=== PATIENT | male | born 1940 | race Caucasian/White ===

== ENCOUNTER 2022-01-20 13:07 | Emergency (ER) | payer OTHER ==
[~2022-01-20] VITALS: Ht 170.2 cm; Wt 77.1 kg
--- NOTE | 2022-01-20 13:10 | NUR ---
Patient triaged. VSS and patient appears in no acute distress at this time. Accompanied by EMT'S , awaiting available bed, and MD notified of need for MSE.
[2022-01-20 13:14] VITALS: BP_SYST 98
--- NOTE | 2022-01-20 13:21 | NUR ---
ER DR. STUBBS EXAMINING PT ON DEQUAN
[2022-01-20 13:34] LABS: BASOPHILS # (AUTO) 0.1 K/uL (0.0-0.2); BASOPHILS % (AUTO) 1.5 % (0.0-2.0); EOSINOPHILS # (AUTO) 0.1 K/uL (0.0-0.4); EOSINOPHILS % (AUTO) 1.9 % (0.0-4.0); HEMATOCRIT 39.6 % (36-54); HEMOGLOBIN 12.9 g/dL (14.0-18.0); LYMPHOCYTES # (AUTO) 1.2 K/uL (1.0-5.5); LYMPHOCYTES % (AUTO) 24.4 % (20.5-51.5); MEAN CORPUSCULAR HEMOGLOBIN 29 pg (27-31); MEAN CORPUSCULAR HGB CONC 33 % (32-36); MEAN CORPUSCULAR VOLUME 88 fL (79.0-98.0); MONOCYTES # (AUTO) 0.6 K/uL (0.0-1.0); MONOCYTES % (AUTO) 11.9 % (1.7-9.3); NEUTROPHILS # (AUTO) 3.1 K/uL (1.8-7.7); NEUTROPHILS % (AUTO) 60.3 % (40.0-70.0); PLATELET COUNT (AUTO) 185 K/uL (130-430); RED BLOOD CELL COUNT(AUTO) 4.49 MIL/uL (4.2-6.2); RED CELL DISTRIBUTION WIDTH 16.5 % (9.0-15.0); WHITE BLOOD COUNT (AUTO) 5.1 K/uL (4.8-10.8)
[2022-01-20 13:48] LABS: ANION GAP 9 (5-15); CALCIUM 9.2 mg/dL (8.4-11.0); CHLORIDE 92 mmol/L (98-107); CREATININE 1.17 mg/dL (0.55-1.30); GLUCOSE 107 mg/dL (70-99); POTASSIUM 5.3 mmol/L (3.5-5.1); SODIUM SERUM 130 mmol/L (136-145); UREA NITROGEN, BLOOD 12 mg/dL (8-21)
[2022-01-20 13:57] LABS: ALANINE AMINOTRANSFERASE 15 U/L (12-78); ALBUMIN 3.6 g/dL (3.4-4.8); ALCOHOL, BLOOD 53 mg/dL (<10); ASPARTATE AMINOTRANSFERASE 32 U/L (10-37); TOTAL BILIRUBIN 0.6 mg/dL (0.0-1.0)
--- NOTE | 2022-01-20 14:58 | NUR ---
Placed in room 2 . Placed on child monitor, blood pressure machine and pulse oximeter. To gown for exam. Side rails up. Report given to YE MARTINEZ.
--- NOTE | 2022-01-20 15:00 | NUR ---
first encounter to pt at this time. pt brody [facility]UNT from assisted living here c/o generalized weakness. pt stated he "feel confused" however, answers all questions correctly. pt is AOx4, resp even and unlabored. vss nad. pt attached to cardiac monitoring. labs drawn prior. EKG done, NSR. vss nad wctm.
[2022-01-20] MEDS ORDERED: NACL 0.9% 1,000 ML IV ONE (15:45)
[2022-01-20 17:15] LABS: BILIRUBIN,URINE NEGATIVE (NEGATIVE); BLOOD, URINE NEGATIVE (NEGATIVE); CLARITY/URINE CLEAR (CLEAR); COLOR,URINE YELLOW (YELLOW); GLUCOSE,URINE NEGATIVE (NEGATIVE); KETONES,URINE NEGATIVE (NEGATIVE); LEUKOCYTE ESTERASE ,URINE NEGATIVE (NEGATIVE); NITRITE, URINE NEGATIVE (NEGATIVE); PROTEIN URINE 2+ (NEGATIVE); UROBILINOGEN,URINE 0.2 (0.2-1.0)
[2022-01-20 17:22] LABS: BACTERIA,URINE FEW /HPF (None Seen); MUCUS,URINE None Seen /LPF (None Seen); RBC,URINE 0-3 /HPF (0-3); WBC,URINE 0-3 /HPF (0-3)
[2022-01-20 17:57] VITALS: BP_SYST 160
--- NOTE | 2022-01-20 17:57 | NUR ---
Patient daughter given written and verbal discharge instructions and verbalizes understanding. ER MD discussed with patient the results and treatment provided. Patient in stable condition. ID arm band removed. IV catheter removed intact and dressing applied, no active bleeding. Patient educated on pain management and to follow up with PMD. Pain Scale . Opportunity for questions provided and answered.
--- NOTE | 2022-02-03 20:32 | NUR ---
ADDENDUM Nacl 0.9% 1000ml start time 16:06hr end time 17:06hr
== END 2022-01-20 17:56 | disposition home or self-care (01) ==
LOC: SED 13:07
DX: R53.1 Weakness (principal); E87.1 Hypo-osmolality and hyponatremia; R41.0 Disorientation, unspecified; F10.129 Alcohol abuse with intoxication, unspecified; I10 Essential (primary) hypertension; Z88.0 Allergy status to penicillin; Z79.899 Other long term (current) drug therapy; Y90.6 Blood alcohol level of 120-199 mg/100 ml
CPT/HCPCS: 99285; 96360; 70450; 71045; 80053; 85025; 84484; 36415; 93005; 76376; 81000; G0482; J7030

== ENCOUNTER 2022-03-26 15:29 | Emergency (ER) | payer OTHER ==
[~2022-03-26] VITALS: Ht 162.6 cm; Wt 68.0 kg
[2022-03-26 15:50] VITALS: BP_SYST 143
--- NOTE | 2022-03-26 15:50 | NUR ---
Patient to ER bed 2 to gown for evaluation. Side rails up. Report given to YE SALOMON.
--- NOTE | 2022-03-26 15:54 | NUR ---
82 YEARS OLD MALE BIBA S/P FALL WITH SMALL FOREHEAD LACERATION, HEMATOMA, ALERT, ORIENTED X3 DENIES PAIN.
--- NOTE | 2022-03-26 19:04 | NUR ---
PATIENT REASSESS STABLE DENIES PAIN AWAITING FOR TRANSPORTATION FOR D/C.
--- NOTE | 2022-03-26 19:13 | NUR ---
Placed in room, report given to MONET ALL QUESTIONS ANSWERED.
[2022-03-27 04:52] VITALS: BP_SYST 136
== END 2022-03-27 02:52 | disposition home or self-care (01) ==
LOC: SED 15:29
DX: S01.81XA Laceration without foreign body of other part of head, initial encounter (principal); I10 Essential (primary) hypertension; Z88.0 Allergy status to penicillin; Z79.899 Other long term (current) drug therapy; W01.0XXA Fall on same level from slipping, tripping and stumbling without subsequent striking against object, initial encounter; Y93.89 Activity, other specified; Y92.89 Other specified places as the place of occurrence of the external cause; Y99.8 Other external cause status
CPT/HCPCS: 70450-TC; 76376; 99284

== ENCOUNTER 2022-10-14 19:13 | Emergency (ER) | payer OTHER ==
[~2022-10-14] VITALS: Ht 172.7 cm; Wt 81.6 kg
[2022-10-14 19:28] VITALS: BP_SYST 112
[2022-10-14 20:09] LABS: BASOPHILS # (AUTO) 0.1 K/uL (0.0-0.2); BASOPHILS % (AUTO) 1.3 % (0.0-2.0); EOSINOPHILS # (AUTO) 0.2 K/uL (0.0-0.4); EOSINOPHILS % (AUTO) 3.1 % (0.0-4.0); HEMOGLOBIN 12.7 g/dL (14.0-18.0); LYMPHOCYTES # (AUTO) 2.1 K/uL (1.0-5.5); LYMPHOCYTES % (AUTO) 39.9 % (20.5-51.5); MEAN CORPUSCULAR HEMOGLOBIN 33 pg (27-31); MEAN CORPUSCULAR HGB CONC 34 % (32-36); MEAN CORPUSCULAR VOLUME 98 fL (79.0-98.0); MONOCYTES # (AUTO) 0.6 K/uL (0.0-1.0); MONOCYTES % (AUTO) 10.6 % (1.7-9.3); NEUTROPHILS # (AUTO) 2.3 K/uL (1.8-7.7); NEUTROPHILS % (AUTO) 45.1 % (40.0-70.0); PLATELET COUNT (AUTO) 154 K/uL (130-430); RED BLOOD CELL COUNT(AUTO) 3.89 MIL/uL (4.2-6.2); RED CELL DISTRIBUTION WIDTH 13.6 % (9.0-15.0); WHITE BLOOD COUNT (AUTO) 5.2 K/uL (4.8-10.8)
[2022-10-14 20:13] LABS: ANION GAP 10 (5-15); CALCIUM 8.4 mg/dL (8.4-11.0); CHLORIDE 100 mmol/L (98-107); CREATININE 0.89 mg/dL (0.55-1.30); GLUCOSE 100 mg/dL (70-99); UREA NITROGEN, BLOOD 7 mg/dL (8-21)
[2022-10-14 20:23] LABS: ALANINE AMINOTRANSFERASE 18 U/L (12-78); ALBUMIN 3.5 g/dL (3.4-4.8); ALCOHOL, BLOOD 292 mg/dL (<10); ASPARTATE AMINOTRANSFERASE 29 U/L (10-37); TOTAL BILIRUBIN 0.2 mg/dL (0.0-1.0)
[2022-10-15] MEDS ORDERED: cloNIDine HCL 0.1 MG TABLET PO ONE (08:15)
[2022-10-15] MEDS ORDERED: LABETALOL HCL 20 MG/4 ML CARTRIDGE IVP ONE (09:15)
[2022-10-15] MEDS ORDERED: hydrALAZINE HCL 20 MG/ML VIAL IVP ONE (10:45)
[2022-10-15 13:30] VITALS: BP_SYST 116
== END 2022-10-15 13:48 ==
LOC: SED 19:13
DX: F10.129 Alcohol abuse with intoxication, unspecified (principal); F03.90 Unspecified dementia, unspecified severity, without behavioral disturbance, psychotic disturbance, mood disturbance, and anxiety; Z79.899 Other long term (current) drug therapy; Y90.6 Blood alcohol level of 120-199 mg/100 ml
CPT/HCPCS: 99285; 70450; 80053; 85025; 84484; 36415; 93005; 72125; 76376; 96374; 96375; G0482; J0360

== ENCOUNTER 2022-11-15 06:32 | Inpatient (IN) | payer OTHER, MEDICAID ==
[~2022-11-15] VITALS: Ht 170.2 cm; Wt 69.9 kg
[2022-11-15 06:35] VITALS: BP_SYST 113; PULSE 103; RESP 16; TEMP 98; O2SAT 97
[2022-11-15] MEDS ORDERED: ONDANSETRON HCL 4 MG/2 ML VIAL IVP ONE (06:45)
[2022-11-15] MEDS ORDERED: MORPHINE 4 MG INJ. 4 MG/ML VIAL IVP ONE (06:45)
[2022-11-15 07:11] LABS: BASOPHILS # (AUTO) 0.1 K/uL (0.0-0.2); BASOPHILS % (AUTO) 0.8 % (0.0-2.0); EOSINOPHILS % (AUTO) 0.3 % (0.0-4.0); HEMATOCRIT 35.3 % (36-54); HEMOGLOBIN 11.7 g/dL (14.0-18.0); LYMPHOCYTES # (AUTO) 1.2 K/uL (1.0-5.5); LYMPHOCYTES % (AUTO) 14.4 % (20.5-51.5); MEAN CORPUSCULAR HEMOGLOBIN 33 pg (27-31); MEAN CORPUSCULAR HGB CONC 33 % (32-36); MEAN CORPUSCULAR VOLUME 98 fL (79.0-98.0); MONOCYTES # (AUTO) 0.9 K/uL (0.0-1.0); MONOCYTES % (AUTO) 11.2 % (1.7-9.3); NEUTROPHILS # (AUTO) 6.2 K/uL (1.8-7.7); NEUTROPHILS % (AUTO) 73.3 % (40.0-70.0); PLATELET COUNT (AUTO) 230 K/uL (130-430); RED CELL DISTRIBUTION WIDTH 14.4 % (9.0-15.0); WHITE BLOOD COUNT (AUTO) 8.4 K/uL (4.8-10.8)
[2022-11-15 07:36] LABS: ANION GAP 15 (5-15); CALCIUM 9.3 mg/dL (8.4-11.0); CHLORIDE 98 mmol/L (98-107); CREATININE 1.55 mg/dL (0.55-1.30); GLUCOSE 125 mg/dL (70-99); UREA NITROGEN, BLOOD 13 mg/dL (8-21)
[2022-11-15 07:40] LABS: ALANINE AMINOTRANSFERASE 22 U/L (12-78); ALBUMIN 3.7 g/dL (3.4-4.8); ASPARTATE AMINOTRANSFERASE 25 U/L (10-37); TOTAL BILIRUBIN 0.4 mg/dL (0.0-1.0)
[2022-11-15] MEDS: D5/0.45 NS 1,000 ML IV SCH ×2 (09:45→21:03)
[2022-11-15] MEDS ORDERED: SODIUM POLYSTYRENE SULFONATE 15 GM/60 ML UDBTL PO ONE (09:45)
[2022-11-15 09:48] LABS: BILIRUBIN,URINE NEGATIVE (NEGATIVE); BLOOD, URINE NEGATIVE (NEGATIVE); COLOR,URINE YELLOW (YELLOW); GLUCOSE,URINE NEGATIVE (NEGATIVE); KETONES,URINE TRACE (NEGATIVE); LEUKOCYTE ESTERASE ,URINE NEGATIVE (NEGATIVE); NITRITE, URINE NEGATIVE (NEGATIVE); PROTEIN URINE TRACE (NEGATIVE); UROBILINOGEN,URINE 0.2 (0.2-1.0)
[2022-11-15 09:50] LABS: CLARITY/URINE SLIGHTLY HAZY (CLEAR)
[2022-11-15] MEDS ORDERED: ONDANSETRON HCL 4 MG/2 ML VIAL IVP PRN (10:00)
[2022-11-15] MEDS ORDERED: NALOXONE HCL 0.4 MG/ML AMP (NARCAN) IVP PRN (10:00)
[2022-11-15] MEDS ORDERED: MORPHINE 4 MG INJ. 4 MG/ML VIAL IVP PRN (10:00)
[2022-11-15 10:08] LABS: RBC,URINE 0-3 /HPF (0-3); WBC,URINE NONE SEEN /HPF (0-3)
[2022-11-15 10:09] LABS: BACTERIA,URINE FEW /HPF (None Seen)
[2022-11-15] MEDS: MORPHINE 2 MG/ML INJ. SYRINGE IVP PRN (10:41)
[2022-11-15 11:16] VITALS: BP_SYST 150; PULSE 119; RESP 22; TEMP 97.6
[2022-11-15] MEDS ORDERED: ACETAMINOPHEN 325 MG TABLET PO PRN (11:30)
[2022-11-15 11:38] VITALS: O2SAT 96
[2022-11-15 11:48] LABS: TOTAL IRON BIND. CAPACITY 246 ug/dL (250-450)
[2022-11-15 12:00] VITALS: BP_SYST 105; PULSE 89; RESP 19; TEMP 98; O2SAT 96
[2022-11-15] MEDS: ACETAMINOPHEN 325 MG TABLET PO PRN (12:52)
[2022-11-15 16:00] VITALS: BP_SYST 93; PULSE 120; RESP 19; TEMP 97.6; O2SAT 96
[2022-11-15 20:02] VITALS: BP_SYST 145; PULSE 107; RESP 18; TEMP 98.7; O2SAT 94
[2022-11-16 02:06] VITALS: BP_SYST 108; PULSE 100; RESP 18; TEMP 96.6; O2SAT 92
[2022-11-16 06:19] LABS: BASOPHILS % (AUTO) 0.3 % (0.0-2.0); EOSINOPHILS % (AUTO) 0.3 % (0.0-4.0); HEMOGLOBIN 8.4 g/dL (14.0-18.0); LYMPHOCYTES # (AUTO) 1.4 K/uL (1.0-5.5); LYMPHOCYTES % (AUTO) 11.8 % (20.5-51.5); MEAN CORPUSCULAR HEMOGLOBIN 33 pg (27-31); MEAN CORPUSCULAR HGB CONC 34 % (32-36); MEAN CORPUSCULAR VOLUME 97 fL (79.0-98.0); MONOCYTES # (AUTO) 0.9 K/uL (0.0-1.0); MONOCYTES % (AUTO) 7.5 % (1.7-9.3); NEUTROPHILS # (AUTO) 9.6 K/uL (1.8-7.7); NEUTROPHILS % (AUTO) 80.1 % (40.0-70.0); PLATELET COUNT (AUTO) 171 K/uL (130-430); RED BLOOD CELL COUNT(AUTO) 2.57 MIL/uL (4.2-6.2); RED CELL DISTRIBUTION WIDTH 14.5 % (9.0-15.0)
[2022-11-16 06:27] LABS: ALANINE AMINOTRANSFERASE 15 U/L (12-78); ALBUMIN 2.7 g/dL (3.4-4.8); ANION GAP 8 (5-15); ASPARTATE AMINOTRANSFERASE 29 U/L (10-37); CALCIUM 7.6 mg/dL (8.4-11.0); CHLORIDE 96 mmol/L (98-107); CREATININE 3.05 mg/dL (0.55-1.30); GLUCOSE 111 mg/dL (74-106); TOTAL BILIRUBIN 0.8 mg/dL (0.0-1.0); UREA NITROGEN, BLOOD 29 mg/dL (8-21)
[2022-11-16 08:00] VITALS: BP_SYST 93; PULSE 62; RESP 18; TEMP 98.5; O2SAT 95
[2022-11-16 08:06] LABS: FOLATE (FOLIC ACID) 6.8 ng/mL (>3.0)
[2022-11-16] MEDS: D5/0.45 NS 1,000 ML IV SCH ×3 (08:25→20:47)
[2022-11-16] MEDS ORDERED: NS 500 ML IV ONE (08:45)
[2022-11-16] MEDS ORDERED: SEVOFLURANE 15 MIN GAS INH ONE (11:18)
[2022-11-16] MEDS ORDERED: DEXAMETHASONE SOD PHOSPHATE 4 MG/ML VIAL ONE (11:18)
[2022-11-16] MEDS ORDERED: PROPOFOL 200MG/ 20ML VIAL (DIPRIVAN) IV ONE (11:18)
[2022-11-16] MEDS ORDERED: ePHEDrine sulfate 50 MG/ML VIAL ONE (11:18)
[2022-11-16] MEDS ORDERED: ONDANSETRON HCL 4 MG/2 ML VIAL ONE (11:18)
[2022-11-16] MEDS ORDERED: fentaNYL CITRATE/PF 100 MCG/2 ML AMP ONE (11:18)
[2022-11-16] MEDS ORDERED: BUPIVACAINE /PF 0.5% 30 ML VIAL ONE (11:18)
[2022-11-16] MEDS ORDERED: PHENYLEPHRINE HCL 10 MG/ML VIAL (NEOSYNEPHRINE) ONE (11:18)
[2022-11-16] MEDS ORDERED: NS IRRIG SOLN 1000 ML IR ONE (11:18)
[2022-11-16] MEDS ORDERED: METOCLOPRAMIDE HCL 10 MG/2 ML VIAL ONE (11:18)
[2022-11-16 11:24] VITALS: BP_SYST 95; PULSE 66; RESP 18; TEMP 98.4; O2SAT 96
[2022-11-16] MEDS ORDERED: MEPERIDINE HCL/PF 25 MG/ML DISP.SYRIN IVP PRN (12:30)
[2022-11-16] MEDS ORDERED: ONDANSETRON HCL 4 MG/2 ML VIAL IVP PRN (12:30)
[2022-11-16] MEDS ORDERED: NACL 0.9% 1,000 ML IV SCH (12:30)
[2022-11-16] MEDS ORDERED: HYDROmorphone 1 MG/ML INJ. CARTRIDGE IVP PRN (12:30)
[2022-11-16] MEDS ORDERED: NALOXONE HCL 0.4 MG/ML AMP (NARCAN) IVP PRN (12:30)
[2022-11-16] MEDS ORDERED: FOLIC ACID 1 MG, THIAMINE HCL 100 MG, MAGNESIUM SULFATE 1 GM, MVI 10 ML in NACL 0.9% 1,... IV SCH (13:30)
[2022-11-16] MEDS ORDERED: CYANOCOBALAMIN 1000 MCG/ML VIAL IM ONE (14:00)
[2022-11-16 14:01] LABS: CKMB RELATIVE INDEX 0.7 (0.0-2.9); CREATINE KINASE MB 2.4 ng/mL (0-3.6)
[2022-11-16] MEDS ORDERED: cloNIDine HCL 0.1 MG TABLET PO PRN (14:15)
[2022-11-16] MEDS ORDERED: LORazepam 2 MG/ML VIAL IVP PRN (14:15)
[2022-11-16] MEDS: ceFAZolin SODIUM 2 GM in D5W 100 ML IV SCH ×2 (14:33→20:47)
[2022-11-16] MEDS: THIAMINE HCL 100 MG, MAGNESIUM SULFATE 1 GM in NS 100 ML IV SCH (15:55)
[2022-11-16] MEDS: FOLIC ACID 1 MG, MVI 10 ML in NACL 0.9% 1,000 ML IV SCH (15:56)
[2022-11-16 16:00] VITALS: BP_SYST 115; PULSE 65; RESP 18; TEMP 98.1; O2SAT 96
[2022-11-16] MEDS: QUEtiapine FUMARATE 25 MG TABLET PO SCH (17:10)
[2022-11-16 19:40] VITALS: BP_SYST 110; PULSE 101; RESP 18; TEMP 98.8; O2SAT 95
[2022-11-17 02:15] VITALS: BP_SYST 141; PULSE 111; RESP 20; TEMP 98.7; O2SAT 96
[2022-11-17] MEDS: D5/0.45 NS 1,000 ML IV SCH ×3 (04:05→18:22)
[2022-11-17 05:40] LABS: BASOPHILS % (AUTO) 0.1 % (0.0-2.0); HEMOGLOBIN 7.3 g/dL (14.0-18.0); LYMPHOCYTES # (AUTO) 0.6 K/uL (1.0-5.5); LYMPHOCYTES % (AUTO) 7.2 % (20.5-51.5); MEAN CORPUSCULAR HEMOGLOBIN 33 pg (27-31); MEAN CORPUSCULAR HGB CONC 35 % (32-36); MEAN CORPUSCULAR VOLUME 96 fL (79.0-98.0); MONOCYTES # (AUTO) 0.5 K/uL (0.0-1.0); MONOCYTES % (AUTO) 5.9 % (1.7-9.3); NEUTROPHILS # (AUTO) 7.7 K/uL (1.8-7.7); NEUTROPHILS % (AUTO) 86.8 % (40.0-70.0); PLATELET COUNT (AUTO) 162 K/uL (130-430); RED BLOOD CELL COUNT(AUTO) 2.19 MIL/uL (4.2-6.2); RED CELL DISTRIBUTION WIDTH 14.2 % (9.0-15.0); WHITE BLOOD COUNT (AUTO) 8.9 K/uL (4.8-10.8)
[2022-11-17 06:03] LABS: HEMATOCRIT 21.1 % (36-54)
[2022-11-17] MEDS: ceFAZolin SODIUM 2 GM in D5W 100 ML IV SCH (06:24)
[2022-11-17 06:32] LABS: ALANINE AMINOTRANSFERASE 16 U/L (12-78); ALBUMIN 2.4 g/dL (3.4-4.8); ANION GAP 7 (5-15); ASPARTATE AMINOTRANSFERASE 35 U/L (10-37); CALCIUM 7.8 mg/dL (8.4-11.0); CHLORIDE 100 mmol/L (98-107); CHOLESTEROL 98 mg/dL (<200); CREATININE 1.13 mg/dL (0.55-1.30); GLUCOSE 178 mg/dL (74-106); HDL CHOLESTEROL 52 mg/dL (>45); THYROID STIMULATING HORMONE 0.54 uIu/mL (0.34-4.82); TOTAL BILIRUBIN 0.3 mg/dL (0.0-1.0); TRIGLYCERIDES 56 mg/dL (30-150); UREA NITROGEN, BLOOD 20 mg/dL (8-21)
[2022-11-17 07:55] VITALS: BP_SYST 119; PULSE 93; RESP 20; TEMP 97.4; O2SAT 98
[2022-11-17 08:00] VITALS: O2SAT 98
[2022-11-17] MEDS: CYANOCOBALAMIN (VITAMIN B-12) 1,000 MCG TABLET PO SCH (09:29)
[2022-11-17 11:34] VITALS: BP_SYST 113; PULSE 94; RESP 17; TEMP 98.1; O2SAT 100
[2022-11-17] MEDS ORDERED: MULTIVITS,CA,MINERALS/IRON/FA 1 TABLET PO ONE (15:30)
[2022-11-17] MEDS ORDERED: CYANOCOBALAMIN 1000 MCG/ML VIAL IM ONE (16:00)
[2022-11-17] MEDS: THIAMINE HCL 100 MG, MAGNESIUM SULFATE 1 GM in NS 100 ML IV SCH (16:04)
[2022-11-17] MEDS: FOLIC ACID 1 MG, MVI 10 ML in NACL 0.9% 1,000 ML IV SCH (16:05)
[2022-11-17] MEDS: SOD FERRIC GLUC COMPLEX/SUC 125 MG in NS 100 ML IV SCH (16:09)
[2022-11-17] MEDS: EPOETIN ALFA-EPBX 4,000 UNITS/ML VIAL SUBCUT SCH (16:15)
[2022-11-17 17:08] VITALS: BP_SYST 150; PULSE 104; RESP 18; TEMP 97.8; O2SAT 99
[2022-11-17] MEDS: QUEtiapine FUMARATE 25 MG TABLET PO SCH (17:35)
[2022-11-17 20:00] VITALS: BP_SYST 143; PULSE 98; RESP 18; TEMP 97.1; O2SAT 99
[2022-11-17] MEDS: ACETAMINOPHEN 325 MG TABLET PO PRN (20:35)
[2022-11-18] VITALS (7 sets, daily range): BP systolic 128–139; PULSE 71–97; RESP 17–18; TEMP 97.5–98.3; O2SAT 95–100
[2022-11-18 07:56] LABS: BASOPHILS % (AUTO) 0.3 % (0.0-2.0); EOSINOPHILS # (AUTO) 0.1 K/uL (0.0-0.4); EOSINOPHILS % (AUTO) 1.1 % (0.0-4.0); HEMATOCRIT 22.1 % (36-54); HEMOGLOBIN 7.4 g/dL (14.0-18.0); LYMPHOCYTES # (AUTO) 1.4 K/uL (1.0-5.5); LYMPHOCYTES % (AUTO) 15.1 % (20.5-51.5); MEAN CORPUSCULAR HEMOGLOBIN 33 pg (27-31); MEAN CORPUSCULAR HGB CONC 33 % (32-36); MEAN CORPUSCULAR VOLUME 98 fL (79.0-98.0); MONOCYTES # (AUTO) 0.5 K/uL (0.0-1.0); MONOCYTES % (AUTO) 5.5 % (1.7-9.3); NEUTROPHILS # (AUTO) 7.4 K/uL (1.8-7.7); PLATELET COUNT (AUTO) 221 K/uL (130-430); RED BLOOD CELL COUNT(AUTO) 2.26 MIL/uL (4.2-6.2); RED CELL DISTRIBUTION WIDTH 14.6 % (9.0-15.0); WHITE BLOOD COUNT (AUTO) 9.5 K/uL (4.8-10.8)
[2022-11-18 07:57] LABS: ANION GAP 6 (5-15); CHLORIDE 102 mmol/L (98-107); CREATININE 0.76 mg/dL (0.55-1.30); GLUCOSE 124 mg/dL (74-106); UREA NITROGEN, BLOOD 10 mg/dL (8-21)
[2022-11-18 08:09] LABS: ALANINE AMINOTRANSFERASE 19 U/L (12-78); ALBUMIN 2.6 g/dL (3.4-4.8); ASPARTATE AMINOTRANSFERASE 36 U/L (10-37); TOTAL BILIRUBIN 0.5 mg/dL (0.0-1.0)
[2022-11-18] MEDS: CYANOCOBALAMIN (VITAMIN B-12) 1,000 MCG TABLET PO SCH (08:22)
[2022-11-18] MEDS: MULTIVITS,CA,MINERALS/IRON/FA 1 TABLET PO SCH (08:22)
[2022-11-18] MEDS: ACETAMINOPHEN 325 MG TABLET PO PRN ×3 (08:26→23:13)
[2022-11-18] MEDS ORDERED: CYANOCOBALAMIN (VITAMIN B-12) 1,000 MCG TABLET PO SCH (09:00)
[2022-11-18] MEDS ORDERED: TAMSULOSIN HCL 0.4 MG CAP PO ONE (12:30)
[2022-11-18] MEDS ORDERED: CHOLECALCIFEROL (VITAMIN D3) 2,000 UNIT TABLET PO ONE (12:45)
[2022-11-18] MEDS: D5/0.45 NS 1,000 ML IV SCH (14:09)
[2022-11-18] MEDS: SOD FERRIC GLUC COMPLEX/SUC 125 MG in NS 100 ML IV SCH (16:48)
[2022-11-18] MEDS: QUEtiapine FUMARATE 25 MG TABLET PO SCH (18:16)
[2022-11-18] MEDS: TAMSULOSIN HCL 0.4 MG CAP PO SCH (20:54)
[2022-11-18] MEDS: MULTIVITAMINS TAB 1 TABLET PO SCH (20:54)
[2022-11-19 00:22] VITALS: BP_SYST 155; PULSE 101; RESP 18; TEMP 97.5; O2SAT 96
[2022-11-19 07:03] LABS: ANION GAP 4 (5-15); CALCIUM 8.4 mg/dL (8.4-11.0); CHLORIDE 102 mmol/L (98-107); CREATININE 0.84 mg/dL (0.55-1.30); GLUCOSE 108 mg/dL (74-106); UREA NITROGEN, BLOOD 7 mg/dL (8-21)
[2022-11-19 07:29] LABS: BASOPHILS # (AUTO) 0.1 K/uL (0.0-0.2); BASOPHILS % (AUTO) 0.9 % (0.0-2.0); EOSINOPHILS # (AUTO) 0.3 K/uL (0.0-0.4); EOSINOPHILS % (AUTO) 3.9 % (0.0-4.0); HEMATOCRIT 22.1 % (36-54); HEMOGLOBIN 7.4 g/dL (14.0-18.0); LYMPHOCYTES # (AUTO) 1.4 K/uL (1.0-5.5); LYMPHOCYTES % (AUTO) 19.9 % (20.5-51.5); MEAN CORPUSCULAR HEMOGLOBIN 33 pg (27-31); MEAN CORPUSCULAR HGB CONC 34 % (32-36); MEAN CORPUSCULAR VOLUME 97 fL (79.0-98.0); MONOCYTES # (AUTO) 0.6 K/uL (0.0-1.0); MONOCYTES % (AUTO) 8.2 % (1.7-9.3); NEUTROPHILS # (AUTO) 4.8 K/uL (1.8-7.7); NEUTROPHILS % (AUTO) 67.1 % (40.0-70.0); PLATELET COUNT (AUTO) 244 K/uL (130-430); RED BLOOD CELL COUNT(AUTO) 2.27 MIL/uL (4.2-6.2); RED CELL DISTRIBUTION WIDTH 14.6 % (9.0-15.0); WHITE BLOOD COUNT (AUTO) 7.1 K/uL (4.8-10.8)
[2022-11-19 08:00] VITALS: BP_SYST 161; PULSE 104; RESP 18; TEMP 99; O2SAT 95; O2SAT 98
[2022-11-19] MEDS: ACETAMINOPHEN 325 MG TABLET PO PRN ×2 (08:19→17:47)
[2022-11-19] MEDS: TAMSULOSIN HCL 0.4 MG CAP PO SCH ×2 (08:21→21:13)
[2022-11-19] MEDS: MULTIVITS,CA,MINERALS/IRON/FA 1 TABLET PO SCH (08:22)
[2022-11-19] MEDS: MULTIVITAMINS TAB 1 TABLET PO SCH ×2 (08:22→21:13)
[2022-11-19] MEDS: CYANOCOBALAMIN (VITAMIN B-12) 1,000 MCG TABLET PO SCH (08:22)
[2022-11-19] MEDS: CHOLECALCIFEROL (VITAMIN D3) 2,000 UNIT TABLET PO SCH (08:22)
[2022-11-19] MEDS: FOLIC ACID 1 MG TABLET PO SCH ×2 (08:23→08:40)
[2022-11-19] MEDS: THIAMINE HCL 100 MG TABLET PO SCH (08:41)
[2022-11-19] MEDS ORDERED: LOSARTAN POTASSIUM 50 MG TABLET (COZAAR) PO ONE (10:15)
[2022-11-19 12:00] VITALS: BP_SYST 140; PULSE 93; RESP 18; TEMP 98.2; O2SAT 99
[2022-11-19 16:00] VITALS: BP_SYST 150; PULSE 102; RESP 17; TEMP 98.2; O2SAT 98
[2022-11-19] MEDS: SOD FERRIC GLUC COMPLEX/SUC 125 MG in NS 100 ML IV SCH (17:23)
[2022-11-19] MEDS: QUEtiapine FUMARATE 25 MG TABLET PO SCH (17:36)
[2022-11-19] MEDS: EPOETIN ALFA-EPBX 4,000 UNITS/ML VIAL SUBCUT SCH (17:37)
[2022-11-19 20:00] VITALS: BP_SYST 152; PULSE 99; RESP 18; TEMP 97.4; O2SAT 98
[2022-11-20] VITALS: BP_SYST 149; PULSE 98; RESP 18; TEMP 97.5; O2SAT 98
[2022-11-20 00:15] VITALS: BP_SYST 110; PULSE 93; RESP 16; TEMP 97.8; O2SAT 96
[2022-11-20 08:00] VITALS: O2SAT 94
[2022-11-20] MEDS: LOSARTAN POTASSIUM 50 MG TABLET (COZAAR) PO SCH (08:45)
[2022-11-20] MEDS: FOLIC ACID 1 MG TABLET PO SCH (08:46)
[2022-11-20] MEDS: MULTIVITAMINS TAB 1 TABLET PO SCH ×2 (08:46→21:57)
[2022-11-20] MEDS: MULTIVITS,CA,MINERALS/IRON/FA 1 TABLET PO SCH (08:46)
[2022-11-20] MEDS: CYANOCOBALAMIN (VITAMIN B-12) 1,000 MCG TABLET PO SCH (08:46)
[2022-11-20] MEDS: CHOLECALCIFEROL (VITAMIN D3) 2,000 UNIT TABLET PO SCH (08:46)
[2022-11-20] MEDS: THIAMINE HCL 100 MG TABLET PO SCH (08:46)
[2022-11-20] MEDS: TAMSULOSIN HCL 0.4 MG CAP PO SCH ×2 (08:46→21:57)
[2022-11-20] MEDS: MORPHINE 2 MG/ML INJ. SYRINGE IVP PRN ×2 (08:49→17:46)
[2022-11-20] MEDS: ENOXAPARIN SODIUM 40 MG/0.4 ML SYRINGE SUBCUT SCH (11:33)
[2022-11-20 11:37] VITALS: BP_SYST 120; PULSE 102; RESP 17; TEMP 99.1; O2SAT 96
[2022-11-20 17:34] VITALS: BP_SYST 154; PULSE 108; RESP 17; TEMP 99.4; O2SAT 95
[2022-11-20] MEDS: QUEtiapine FUMARATE 25 MG TABLET PO SCH (17:46)
[2022-11-20 20:00] VITALS: BP_SYST 105; PULSE 95; RESP 18; TEMP 98.6; O2SAT 95
[2022-11-21 00:31] VITALS: BP_SYST 120; PULSE 98; RESP 20; TEMP 99.2; O2SAT 98
[2022-11-21] MEDS: MORPHINE 2 MG/ML INJ. SYRINGE IVP PRN ×3 (00:48→22:17)
[2022-11-21 05:51] LABS: BASOPHILS # (AUTO) 0.1 K/uL (0.0-0.2); BASOPHILS % (AUTO) 1.7 % (0.0-2.0); EOSINOPHILS # (AUTO) 0.3 K/uL (0.0-0.4); EOSINOPHILS % (AUTO) 3.9 % (0.0-4.0); HEMATOCRIT 23.3 % (36-54); HEMOGLOBIN 7.7 g/dL (14.0-18.0); LYMPHOCYTES # (AUTO) 1.6 K/uL (1.0-5.5); LYMPHOCYTES % (AUTO) 24.5 % (20.5-51.5); MEAN CORPUSCULAR HEMOGLOBIN 33 pg (27-31); MEAN CORPUSCULAR HGB CONC 33 % (32-36); MEAN CORPUSCULAR VOLUME 98 fL (79.0-98.0); MONOCYTES # (AUTO) 0.8 K/uL (0.0-1.0); MONOCYTES % (AUTO) 11.5 % (1.7-9.3); NEUTROPHILS # (AUTO) 3.8 K/uL (1.8-7.7); NEUTROPHILS % (AUTO) 58.4 % (40.0-70.0); PLATELET COUNT (AUTO) 282 K/uL (130-430); RED BLOOD CELL COUNT(AUTO) 2.37 MIL/uL (4.2-6.2); RED CELL DISTRIBUTION WIDTH 14.8 % (9.0-15.0); WHITE BLOOD COUNT (AUTO) 6.5 K/uL (4.8-10.8)
[2022-11-21 06:08] LABS: ANION GAP 7 (5-15); CALCIUM 8.9 mg/dL (8.4-11.0); CHLORIDE 101 mmol/L (98-107); CREATININE 0.74 mg/dL (0.55-1.30); GLUCOSE 113 mg/dL (74-106); UREA NITROGEN, BLOOD 14 mg/dL (8-21)
[2022-11-21 07:00] VITALS: O2SAT 96
[2022-11-21 08:00] VITALS: BP_SYST 103; BP_SYST 97; PULSE 92; RESP 20; TEMP 97.9; O2SAT 96
[2022-11-21] MEDS: LOSARTAN POTASSIUM 50 MG TABLET (COZAAR) PO SCH (09:00)
[2022-11-21] MEDS: MULTIVITS,CA,MINERALS/IRON/FA 1 TABLET PO SCH (09:07)
[2022-11-21] MEDS: CHOLECALCIFEROL (VITAMIN D3) 2,000 UNIT TABLET PO SCH (09:08)
[2022-11-21] MEDS: MULTIVITAMINS TAB 1 TABLET PO SCH ×2 (09:08→22:17)
[2022-11-21] MEDS: THIAMINE HCL 100 MG TABLET PO SCH (09:08)
[2022-11-21] MEDS: TAMSULOSIN HCL 0.4 MG CAP PO SCH ×2 (09:08→22:17)
[2022-11-21] MEDS: FOLIC ACID 1 MG TABLET PO SCH (09:08)
[2022-11-21] MEDS: ACETAMINOPHEN 325 MG TABLET PO PRN (09:08)
[2022-11-21] MEDS: CYANOCOBALAMIN (VITAMIN B-12) 1,000 MCG TABLET PO SCH (09:08)
[2022-11-21 12:00] VITALS: BP_SYST 105; PULSE 93; RESP 16; TEMP 98; O2SAT 97
[2022-11-21] MEDS: ENOXAPARIN SODIUM 40 MG/0.4 ML SYRINGE SUBCUT SCH ×2 (14:05→14:21)
[2022-11-21 16:00] VITALS: BP_SYST 127; PULSE 96; RESP 16; TEMP 98; O2SAT 95
[2022-11-21] MEDS: QUEtiapine FUMARATE 25 MG TABLET PO SCH (18:00)
[2022-11-21] MEDS: EPOETIN ALFA-EPBX 4,000 UNITS/ML VIAL SUBCUT SCH (18:00)
[2022-11-21 20:00] VITALS: BP_SYST 123; PULSE 95; RESP 17; TEMP 97; O2SAT 97
[2022-11-22 01:20] VITALS: BP_SYST 133; PULSE 86; RESP 17; TEMP 97.7; O2SAT 99
[2022-11-22 08:00] VITALS: BP_SYST 96; PULSE 90; RESP 17; TEMP 97.7; O2SAT 98
[2022-11-22] MEDS: MULTIVITS,CA,MINERALS/IRON/FA 1 TABLET PO SCH (08:59)
[2022-11-22] MEDS: LOSARTAN POTASSIUM 50 MG TABLET (COZAAR) PO SCH (08:59)
[2022-11-22] MEDS: TAMSULOSIN HCL 0.4 MG CAP PO SCH ×2 (08:59→20:51)
[2022-11-22] MEDS: CHOLECALCIFEROL (VITAMIN D3) 2,000 UNIT TABLET PO SCH (08:59)
[2022-11-22] MEDS: MULTIVITAMINS TAB 1 TABLET PO SCH ×2 (08:59→20:52)
[2022-11-22] MEDS: THIAMINE HCL 100 MG TABLET PO SCH (08:59)
[2022-11-22] MEDS: FOLIC ACID 1 MG TABLET PO SCH (08:59)
[2022-11-22] MEDS: CYANOCOBALAMIN (VITAMIN B-12) 1,000 MCG TABLET PO SCH (08:59)
[2022-11-22 10:32] VITALS: O2SAT 97
[2022-11-22 13:59] VITALS: BP_SYST 130; PULSE 98; RESP 20; TEMP 98.3; O2SAT 98
[2022-11-22] MEDS: QUEtiapine FUMARATE 25 MG TABLET PO SCH (18:26)
[2022-11-22 18:31] VITALS: BP_SYST 131; PULSE 98; RESP 18; TEMP 97.4; O2SAT 97
[2022-11-22 20:00] VITALS: BP_SYST 139; PULSE 97; RESP 18; TEMP 98; O2SAT 95
[2022-11-23 01:24] VITALS: BP_SYST 140; PULSE 84; RESP 17; TEMP 98; O2SAT 99
[2022-11-23] MEDS: TAMSULOSIN HCL 0.4 MG CAP PO SCH ×2 (08:53→23:14)
[2022-11-23] MEDS: MULTIVITS,CA,MINERALS/IRON/FA 1 TABLET PO SCH (08:53)
[2022-11-23] MEDS: MULTIVITAMINS TAB 1 TABLET PO SCH ×2 (08:53→23:14)
[2022-11-23] MEDS: FOLIC ACID 1 MG TABLET PO SCH (08:53)
[2022-11-23] MEDS: LOSARTAN POTASSIUM 50 MG TABLET (COZAAR) PO SCH (08:53)
[2022-11-23] MEDS: CHOLECALCIFEROL (VITAMIN D3) 2,000 UNIT TABLET PO SCH (08:53)
[2022-11-23] MEDS: THIAMINE HCL 100 MG TABLET PO SCH (08:53)
[2022-11-23] MEDS: CYANOCOBALAMIN (VITAMIN B-12) 1,000 MCG TABLET PO SCH (08:53)
[2022-11-23 11:59] VITALS: O2SAT 97
[2022-11-23 12:07] VITALS: BP_SYST 122; PULSE 90; RESP 17; TEMP 97.8; O2SAT 97
[2022-11-23] MEDS ORDERED: ACET325T PO (12:13)
[2022-11-23] MEDS ORDERED: LOVI40 SUBCUT (12:13)
[2022-11-23] MEDS: ENOXAPARIN SODIUM 40 MG/0.4 ML SYRINGE SUBCUT SCH (12:47)
[2022-11-23] MEDS: MORPHINE 2 MG/ML INJ. SYRINGE IVP PRN (14:05)
[2022-11-23 16:14] VITALS: BP_SYST 114; PULSE 92; RESP 17; TEMP 97.3; O2SAT 97
[2022-11-23] MEDS: EPOETIN ALFA-EPBX 4,000 UNITS/ML VIAL SUBCUT SCH (17:47)
[2022-11-23] MEDS: QUEtiapine FUMARATE 25 MG TABLET PO SCH (17:47)
[2022-11-23 19:00] VITALS: BP_SYST 113; PULSE 95; RESP 18; TEMP 98.9; O2SAT 97
[2022-11-24] VITALS (8 sets, daily range): BP systolic 103–146; PULSE 68–94; RESP 16–18; TEMP 97.2–98; O2SAT 95–98
[2022-11-24 06:52] LABS: BASOPHILS # (AUTO) 0.1 K/uL (0.0-0.2); BASOPHILS % (AUTO) 0.8 % (0.0-2.0); EOSINOPHILS # (AUTO) 0.2 K/uL (0.0-0.4); EOSINOPHILS % (AUTO) 2.9 % (0.0-4.0); HEMATOCRIT 26.5 % (36-54); HEMOGLOBIN 8.7 g/dL (14.0-18.0); LYMPHOCYTES # (AUTO) 1.2 K/uL (1.0-5.5); LYMPHOCYTES % (AUTO) 16.7 % (20.5-51.5); MEAN CORPUSCULAR HEMOGLOBIN 32 pg (27-31); MEAN CORPUSCULAR HGB CONC 33 % (32-36); MEAN CORPUSCULAR VOLUME 98 fL (79.0-98.0); MONOCYTES # (AUTO) 0.7 K/uL (0.0-1.0); MONOCYTES % (AUTO) 10.1 % (1.7-9.3); NEUTROPHILS % (AUTO) 69.5 % (40.0-70.0); PLATELET COUNT (AUTO) 349 K/uL (130-430); RED CELL DISTRIBUTION WIDTH 15.9 % (9.0-15.0); WHITE BLOOD COUNT (AUTO) 7.3 K/uL (4.8-10.8)
[2022-11-24] MEDS: THIAMINE HCL 100 MG TABLET PO SCH (08:47)
[2022-11-24] MEDS: CYANOCOBALAMIN (VITAMIN B-12) 1,000 MCG TABLET PO SCH (08:47)
[2022-11-24] MEDS: CHOLECALCIFEROL (VITAMIN D3) 2,000 UNIT TABLET PO SCH (08:48)
[2022-11-24] MEDS: MULTIVITAMINS TAB 1 TABLET PO SCH ×2 (08:48→20:13)
[2022-11-24] MEDS: FOLIC ACID 1 MG TABLET PO SCH (08:48)
[2022-11-24] MEDS: MULTIVITS,CA,MINERALS/IRON/FA 1 TABLET PO SCH (08:49)
[2022-11-24] MEDS: LOSARTAN POTASSIUM 50 MG TABLET (COZAAR) PO SCH (08:49)
[2022-11-24] MEDS: TAMSULOSIN HCL 0.4 MG CAP PO SCH ×2 (08:50→20:13)
[2022-11-24] MEDS: ENOXAPARIN SODIUM 40 MG/0.4 ML SYRINGE SUBCUT SCH (12:27)
[2022-11-24] MEDS: QUEtiapine FUMARATE 25 MG TABLET PO SCH (17:52)
[2022-11-24] MEDS ORDERED: MULT-1094 PO (21:28)
== END 2022-11-24 21:00 | DRG 480 ==
LOC: SED 06:32 → STU 08:30 → SMU 11-18 14:03
PROVIDERS: ADMIT Internal Medicine; ATTEND Internal Medicine
PROC: 0QS606Z Reposition Right Upper Femur with Intramedullary Internal Fixation Device, Open Approach (ICD-10-PCS; principal; 2022-11-16 11:18)
DX: S72.141A Displaced intertrochanteric fracture of right femur, initial encounter for closed fracture (principal); E43 Unspecified severe protein-calorie malnutrition; N17.0 Acute kidney failure with tubular necrosis; D62 Acute posthemorrhagic anemia; E87.5 Hyperkalemia; G30.9 Alzheimer's disease, unspecified; F02.B0 Dementia in other diseases classified elsewhere, moderate, without behavioral disturbance, psychotic disturbance, mood disturbance, and anxiety; E86.0 Dehydration; E78.5 Hyperlipidemia, unspecified; W18.39XA Other fall on same level, initial encounter; E86.1 Hypovolemia; F10.10 Alcohol abuse, uncomplicated; Y90.9 Presence of alcohol in blood, level not specified; I10 Essential (primary) hypertension; Z88.6 Allergy status to analgesic agent; Z88.0 Allergy status to penicillin; Z88.8 Allergy status to other drugs, medicaments and biological substances; Z79.899 Other long term (current) drug therapy; Z86.73 Personal history of transient ischemic attack (TIA), and cerebral infarction without residual deficits; Y93.89 Activity, other specified; Y92.89 Other specified places as the place of occurrence of the external cause; Y99.8 Other external cause status; Z68.24 Body mass index [BMI] 24.0-24.9, adult
CPT/HCPCS: 36415; 70450-TC; 71045; 73502; 73552; 76001; 76376; 80048; 80053; 80061; 81000; 82550; 82553; 82607; 82746; 83540; 83550; 83735; 83880; 84443; 85025; 86886; 86900; 86901; 86920; 87081; 87086; 92610-GN; 93005; 93306; 96374; 96375; 96376; 97110-GP; 97116-GP; 97163-GP; 97530-GP; 99291; 99292; C1713; C1769; G0378; J1100; J1650; J2060; J2270; J2370; J2405; J2704; J2765; J2916; J3010; J3411; J3420; J3475; J3490; J7030; J7040; J7060; Q5106

== ENCOUNTER 2023-03-26 11:11 | Emergency (ER) | payer OTHER, MEDICAID ==
[~2023-03-26] VITALS: Ht 170.2 cm; Wt 70.3 kg
[~2023-03-26 11:11] MED LIST: ACET325T PO; LOVI40 SUBCUT; MULT-1094 PO
[2023-03-26] MEDS ORDERED: NACL 0.9% 1,000 ML IV ONE (11:15)
[2023-03-26 11:25] VITALS: BP_SYST 125; PULSE 84; RESP 18; TEMP 97.8; O2SAT 98
[2023-03-26 11:38] LABS: BASOPHILS # (AUTO) 0.1 K/uL (0.0-0.2); BASOPHILS % (AUTO) 0.9 % (0.0-2.0); EOSINOPHILS # (AUTO) 0.1 K/uL (0.0-0.4); EOSINOPHILS % (AUTO) 1.3 % (0.0-4.0); HEMATOCRIT 39.4 % (36-54); HEMOGLOBIN 12.9 g/dL (14.0-18.0); LYMPHOCYTES % (AUTO) 29.3 % (20.5-51.5); MEAN CORPUSCULAR HEMOGLOBIN 31 pg (27-31); MEAN CORPUSCULAR HGB CONC 33 % (32-36); MEAN CORPUSCULAR VOLUME 94 fL (79.0-98.0); MONOCYTES # (AUTO) 0.6 K/uL (0.0-1.0); MONOCYTES % (AUTO) 8.4 % (1.7-9.3); NEUTROPHILS % (AUTO) 60.1 % (40.0-70.0); PLATELET COUNT (AUTO) 207 K/uL (130-430); RED BLOOD CELL COUNT(AUTO) 4.18 MIL/uL (4.2-6.2); RED CELL DISTRIBUTION WIDTH 15.6 % (9.0-15.0); WHITE BLOOD COUNT (AUTO) 6.7 K/uL (4.8-10.8)
[2023-03-26 11:47] LABS: ANION GAP 10 (5-15); CALCIUM 9.3 mg/dL (8.4-11.0); CARBON DIOXIDE 28 mmol/L (23-29); CHLORIDE 95 mmol/L (98-107); CREATININE 1.08 mg/dL (0.55-1.30); GLUCOSE 105 mg/dL (74-106); POTASSIUM 4.5 mmol/L (3.5-5.1); SODIUM SERUM 133 mmol/L (136-145); UREA NITROGEN, BLOOD 10 mg/dL (8-21)
[2023-03-26 11:54] LABS: ALANINE AMINOTRANSFERASE 11 U/L (12-78); ALBUMIN 3.7 g/dL (3.4-4.8); ALCOHOL, BLOOD 90 mg/dL (<10); ASPARTATE AMINOTRANSFERASE 15 U/L (10-37); LIPASE 35 U/L (16-77); TOTAL BILIRUBIN 0.7 mg/dL (0.0-1.0); TOTAL PROTEIN, SERUM 7.6 g/dL (6.4-8.3)
[2023-03-26 14:03] VITALS: BP_SYST 125; PULSE 84; RESP 18; TEMP 97.8; O2SAT 98
== END 2023-03-26 14:02 | disposition home or self-care (01) ==
LOC: SED 11:11
DX: F10.10 Alcohol abuse, uncomplicated (principal); I95.9 Hypotension, unspecified; I10 Essential (primary) hypertension; Z88.0 Allergy status to penicillin; Z88.6 Allergy status to analgesic agent; Z79.899 Other long term (current) drug therapy; Y90.6 Blood alcohol level of 120-199 mg/100 ml
CPT/HCPCS: 99284; 96360; 80053; 82140; 83690; 85025; 84484; 36415; 93005; G0482; J7030

== ENCOUNTER 2023-12-17 10:55 | Inpatient (IN) | payer MEDICAID, OTHER ==
[~2023-12-17] VITALS: Ht 170.2 cm; Wt 70.3 kg
[~2023-12-17 10:55] MED LIST changes: -MULT-1094 PO; +THERA PO; +[UNRECOGNIZED DRUG - OTHER] PO
[2023-12-17 11:04] VITALS: BP_SYST 156; PULSE 90; RESP 17; TEMP 97.2; O2SAT 97
[2023-12-17 11:52] LABS: ERYTHROCYTE SEDIMENTATION RATE 8 MM/HR (0-15)
[2023-12-17 11:55] LABS: BASOPHILS # (AUTO) 0.1 K/uL (0.0-0.2); BASOPHILS % (AUTO) 1.5 % (0.0-2.0); EOSINOPHILS # (AUTO) 0.1 K/uL (0.0-0.4); EOSINOPHILS % (AUTO) 3.5 % (0.0-4.0); HEMATOCRIT 40.9 % (36-54); HEMOGLOBIN 13.3 g/dL (14.0-18.0); LYMPHOCYTES # (AUTO) 1.8 K/uL (1.0-5.5); LYMPHOCYTES % (AUTO) 43.1 % (20.5-51.5); MEAN CORPUSCULAR HEMOGLOBIN 32 pg (27-31); MEAN CORPUSCULAR HGB CONC 33 % (32-36); MEAN CORPUSCULAR VOLUME 98 fL (79.0-98.0); MONOCYTES # (AUTO) 0.3 K/uL (0.0-1.0); MONOCYTES % (AUTO) 7.9 % (1.7-9.3); NEUTROPHILS # (AUTO) 1.8 K/uL (1.8-7.7); PLATELET COUNT (AUTO) 264 K/uL (130-430); RED CELL DISTRIBUTION WIDTH 14.8 % (9.0-15.0); WHITE BLOOD COUNT (AUTO) 4.2 K/uL (4.8-10.8)
[2023-12-17 12:20] LABS: PROTHROMBIN TIME 10.4 SECS (9.5-12.5)
[2023-12-17 12:32] LABS: ALANINE AMINOTRANSFERASE 19 U/L (12-78); ALBUMIN 3.7 g/dL (3.4-4.8); ANION GAP 6 (5-15); ASPARTATE AMINOTRANSFERASE 21 U/L (10-37); BILIRUBIN,DIRECT 0.1 mg/dL (0.0-0.3); CALCIUM 8.8 mg/dL (8.4-11.0); CARBON DIOXIDE 28 mmol/L (23-29); CHLORIDE 98 mmol/L (98-107); CREATININE 0.91 mg/dL (0.55-1.30); GLUCOSE 89 mg/dL (74-106); POTASSIUM 4.8 mmol/L (3.5-5.1); SODIUM SERUM 132 mmol/L (136-145); TOTAL BILIRUBIN 0.3 mg/dL (0.0-1.0); TOTAL PROTEIN, SERUM 7.8 g/dL (6.4-8.3); UREA NITROGEN, BLOOD 10 mg/dL (8-21); URIC ACID 8.4 mg/dL (2.4-7.0)
[2023-12-17] MEDS ORDERED: IBUP-1969 PO (13:18)
[2023-12-17] MEDS ORDERED: HYDR-3917 PO (13:18)
[2023-12-17] MEDS: MORPHINE 2 MG/ML INJ. SYRINGE IM ONE (14:19)
[2023-12-17] MEDS ORDERED: HYDROcodone/ACETAMIN 5-325 MG TAB (NORCO/ VICODIN) PO PRN (15:00)
[2023-12-17] MEDS ORDERED: MORPHINE 2 MG/ML INJ. SYRINGE IVP PRN (15:00)
[2023-12-17] MEDS ORDERED: ACETAMINOPHEN 325 MG TABLET PO PRN (15:00)
[2023-12-17] MEDS: NACL 0.9% 1,000 ML IV SCH (16:41)
[2023-12-17] MEDS: LORazepam 2 MG/ML VIAL IVP ONE (16:41)
[2023-12-17] MEDS ORDERED: AMLO5TAB4 PO (17:05)
[2023-12-17] MEDS ORDERED: LISI40TA20 PO (17:05)
[2023-12-17] MEDS ORDERED: MEMA10TA PO (17:05)
[2023-12-17] MEDS ORDERED: SIMV-341 PO (17:05)
[2023-12-17] MEDS: ENALAPRILAT DIHYDRATE 1.25 MG/ML VIAL IVP ONE (20:33)
[2023-12-17 21:29] VITALS: BP_SYST 146; PULSE 119; RESP 20; TEMP 98.9
[2023-12-17 21:30] VITALS: BP_SYST 146; PULSE 107
[2023-12-17 22:18] VITALS: O2SAT 98
[2023-12-17 22:30] VITALS: BP_SYST 201; PULSE 112; RESP 20; TEMP 98.9; O2SAT 97
[2023-12-17] MEDS: hydrALAZINE HCL 20 MG/ML VIAL IVP PRN (23:06)
[2023-12-18 00:10] VITALS: BP_SYST 181; PULSE 107; RESP 20; TEMP 98.8; O2SAT 97
[2023-12-18 04:51] LABS: BASOPHILS # (AUTO) 0.1 K/uL (0.0-0.2); BASOPHILS % (AUTO) 1.1 % (0.0-2.0); EOSINOPHILS % (AUTO) 0.5 % (0.0-4.0); HEMATOCRIT 39.5 % (36-54); HEMOGLOBIN 13.1 g/dL (14.0-18.0); LYMPHOCYTES # (AUTO) 0.8 K/uL (1.0-5.5); LYMPHOCYTES % (AUTO) 12.6 % (20.5-51.5); MEAN CORPUSCULAR HEMOGLOBIN 32 pg (27-31); MEAN CORPUSCULAR HGB CONC 33 % (32-36); MEAN CORPUSCULAR VOLUME 96 fL (79.0-98.0); MONOCYTES # (AUTO) 0.5 K/uL (0.0-1.0); MONOCYTES % (AUTO) 8.3 % (1.7-9.3); NEUTROPHILS # (AUTO) 4.8 K/uL (1.8-7.7); NEUTROPHILS % (AUTO) 77.5 % (40.0-70.0); PLATELET COUNT (AUTO) 258 K/uL (130-430); RED BLOOD CELL COUNT(AUTO) 4.11 MIL/uL (4.2-6.2); RED CELL DISTRIBUTION WIDTH 14.8 % (9.0-15.0); WHITE BLOOD COUNT (AUTO) 6.1 K/uL (4.8-10.8)
[2023-12-18 05:14] LABS: ANION GAP 7 (5-15); CALCIUM 8.6 mg/dL (8.4-11.0); CARBON DIOXIDE 28 mmol/L (23-29); CHLORIDE 102 mmol/L (98-107); CREATININE 0.83 mg/dL (0.55-1.30); GLUCOSE 122 mg/dL (74-106); POTASSIUM 4.5 mmol/L (3.5-5.1); SODIUM SERUM 137 mmol/L (136-145); UREA NITROGEN, BLOOD 10 mg/dL (8-21)
[2023-12-18 08:10] VITALS: BP_SYST 122; PULSE 117; RESP 18; TEMP 98.1; O2SAT 96
[2023-12-18] MEDS ORDERED: ONDANSETRON HCL 4 MG/2 ML VIAL IVP PRN (08:30)
[2023-12-18] MEDS ORDERED: HYDROcodone/ACETAMIN 10-325 MG TAB PO PRN (08:30)
[2023-12-18] MEDS ORDERED: ACETAMINOPHEN 325 MG TABLET PO PRN ×2 (08:30→09:00)
[2023-12-18] MEDS ORDERED: HYDROcodone/ACETAMIN 5-325 MG TAB (NORCO/ VICODIN) PO PRN (08:30)
[2023-12-18 09:40] VITALS: O2SAT 96
[2023-12-18] MEDS: lisinopriL 20 MG TABLET PO SCH (09:58)
[2023-12-18] MEDS: amLODIPine BESYLATE 5 MG TABLET PO SCH (09:59)
[2023-12-18] MEDS: ENOXAPARIN SODIUM 40 MG/0.4 ML SYRINGE SUBCUT SCH (09:59)
[2023-12-18 11:35] VITALS: BP_SYST 162; PULSE 105; RESP 18; TEMP 98.3; O2SAT 97
[2023-12-18 15:57] VITALS: BP_SYST 140; PULSE 109; RESP 16; TEMP 98.2; O2SAT 96
[2023-12-18 16:11] VITALS: BP_SYST 140; PULSE 109; RESP 16; TEMP 98.2; O2SAT 96
[2023-12-18] MEDS: MAGNESIUM SULFATE/D5W 100 ML IV ONE (16:54)
== END 2023-12-18 18:50 | DRG 556 ==
LOC: SED 10:55 → SMU 14:47
PROVIDERS: ADMIT Student in an Organized Health Care Education/Training Program; ATTEND Student in an Organized Health Care Education/Training Program
DX: M79.18 Myalgia, other site (principal); E83.42 Hypomagnesemia; K40.90 Unilateral inguinal hernia, without obstruction or gangrene, not specified as recurrent; F03.90 Unspecified dementia, unspecified severity, without behavioral disturbance, psychotic disturbance, mood disturbance, and anxiety; I16.0 Hypertensive urgency; Z86.73 Personal history of transient ischemic attack (TIA), and cerebral infarction without residual deficits; Z79.899 Other long term (current) drug therapy; Z88.0 Allergy status to penicillin; Z88.6 Allergy status to analgesic agent
CPT/HCPCS: 36415; 71045; 72192-TC; 80048; 80076; 83037; 83735; 84550; 85025; 85610; 85651; 85730; 93005; 96374; 96375; 97116-GP; 97530-GP; 99285; J0360; J1650; J2060; J2270